=== PATIENT | male | born 1985 | race Caucasian/White ===

== ENCOUNTER 2021-10-17 12:10 | Emergency (ER) | payer MEDICAID ==
[~2021-10-17] VITALS: Ht 188 cm; Wt 79.4 kg
[2021-10-17 12:20] VITALS: BP_SYST 124
--- NOTE | 2021-10-17 12:55 | NUR ---
Pt is aaox1 with no recollection of where he came from. Dried line of blood on pt cranium, skin intact. Pt is uncooperative and refusing full examination at this time.
--- NOTE | 2021-10-17 13:00 | NUR ---
Pt received in hallway from charge nurse . Pt is intoxicated and incoherent. Non- ressponsive VSS skin intact. Pt is aaox1 at this time. Urine specimen collected and sent to the lab.
--- NOTE | 2021-10-17 13:02 | NUR ---
MD DON with PT NELLA.
[2021-10-17 13:33] LABS: BASOPHILS % (AUTO) 1.1 % (0.0-2.0); EOSINOPHILS % (AUTO) 0.7 % (0.0-4.0); HEMATOCRIT 40.2 % (36-54); HEMOGLOBIN 13.1 g/dL (14.0-18.0); LYMPHOCYTES # (AUTO) 0.6 K/uL (1.0-5.5); LYMPHOCYTES % (AUTO) 16.8 % (20.5-51.5); MEAN CORPUSCULAR HEMOGLOBIN 25 pg (27-31); MEAN CORPUSCULAR HGB CONC 33 % (32-36); MEAN CORPUSCULAR VOLUME 76 fL (79.0-98.0); MONOCYTES # (AUTO) 0.3 K/uL (0.0-1.0); MONOCYTES % (AUTO) 7.2 % (1.7-9.3); NEUTROPHILS # (AUTO) 2.7 K/uL (1.8-7.7); NEUTROPHILS % (AUTO) 74.2 % (40.0-70.0); PLATELET COUNT (AUTO) 207 K/uL (130-430); RED BLOOD CELL COUNT(AUTO) 5.32 MIL/uL (4.2-6.2); WHITE BLOOD COUNT (AUTO) 3.7 K/uL (4.8-10.8)
[2021-10-17 13:53] LABS: CALCIUM 8.3 mg/dL (8.4-11.0); CREATININE 0.77 mg/dL (0.55-1.30); POTASSIUM 3.9 mmol/L (3.5-5.1)
[2021-10-17 14:00] LABS: ALBUMIN 3.2 g/dL (3.4-4.8); TOTAL BILIRUBIN 0.9 mg/dL (0.0-1.0)
--- NOTE | 2021-10-17 14:30 | NUR ---
Notified by watchstander that Pt walked away from [facility] and layed down in the waiting room. Searched for pt. and returned him to the [facility].
[2021-10-17] MEDS ORDERED: NACL 0.9% 1,000 ML IV ONE (16:30)
--- NOTE | 2021-10-17 17:41 | NUR ---
Pt requesting food, and detox plan.
--- NOTE | 2021-10-17 17:52 | NUR ---
Pt in [place] in [place] ate 2 turkey sandwich and running normal saline fluids. Pt is cooperative at this time.
--- NOTE | 2021-10-17 19:28 | NUR ---
Pt is asleep at this time. PT report given to RY Patel.
--- NOTE | 2021-10-18 01:50 | NUR ---
WAS ADV PATIENT ELOPED AT APX 1930 INFO PROVIDED BY MARSHALL RAZA
== END 2021-10-17 19:30 | disposition left against medical advice (07) ==
LOC: SED 12:10
DX: F10.129 Alcohol abuse with intoxication, unspecified (principal); F19.10 Other psychoactive substance abuse, uncomplicated; R41.82 Altered mental status, unspecified; Y90.8 Blood alcohol level of 240 mg/100 ml or more; Z79.899 Other long term (current) drug therapy
CPT/HCPCS: 99284; 96360; 70450; 80053; 85025; 36415; 76376; G0482; J7030